=== PATIENT | female | born 1955 | race Caucasian/White ===

== ENCOUNTER 2021-08-19 14:23 | Emergency (ER) | payer MEDICARE, BC ==
[~2021-08-19 14:23] MED LIST: EPINEPHrine 10 ML SYRINGE (0.1 MG/ML) ONE
[2021-08-19 15:10] LABS: HCT 41.7 % (34.0-46.0); Hypochromasia Marked; MCH 40.9 pg (25.0-35.0); MCHC 28.9 g/dL (31.0-37.0); MCV 141.4 fL (80.0-100.0); Macrocytosis Marked; Mean Platelet Volume 9.1; Platelet Count 168 k/uL (150-450); RBC 2.95 m/uL (3.80-5.40); RDW 15.5 % (11.5-15.5)
[2021-08-19] MEDS ORDERED: NOREPINEPHRINE 4 MG in SODIUM CHLORIDE 0.9% 250 ML IV ONE (15:15)
[2021-08-19 15:22] LABS: Toxic Vacuolation Present
[2021-08-19 15:23] LABS: Toxic Granulation Present
[2021-08-19 15:29] LABS: ABG Base Excess -18.2 mmol/L; ABG HCO3 13 mmol/L (21-25); ABG Oxygen Saturation 99.5 % (94-97); ABG PCO2 56 mmHg (35-45); ABG PO2 380 mmHg (83-108); ABG TCO2 15 mmol/L (19-24); Allen Test Performed? Yes
[2021-08-19 15:32] LABS: INR 1.4 (<1.2); Partial Thromboplastin Time 56.6 sec (22.0-30.0); Prothrombin Time 13.9 sec (9.0-12.0)
[2021-08-19 15:36] LABS: ABG PH 6.99 (7.35-7.45)
--- NOTE | 2021-08-19 15:37 | CT ---
EXAMINATION TYPE: CT brain wo con DATE OF EXAM: 08/19/2021 COMPARISON: 01/25/2018 HISTORY: 66-year-old female confusion, altered mental status TECHNIQUE: Examination was done in axial plane without intravenous contrast. Coronal and sagittal r econstructions performed. CT DLP: 1260.1 mGycm Automated exposure control for dose reduction was used. FINDINGS: There is no evidence of acute intracranial hemorrhage, acute ischemic changes, mass, mass-effect, or extra-axial fluid collection. There is no effacement of cerebral sulci or basal subarachnoid cister ns. There is no hydrocephalus. There is no midline shift. Cedeno-white matter distinction is preserv ed. Air-fluid levels within the bilateral sphenoid sinuses, air cells, and trace within the maxillary sin uses. Mastoid air cells well pneumatized. NG tube is visualized. ET tube on the building associate image. Orbits a nd globes are intact. IMPRESSION: No acute intracranial abnormality seen. Air-fluid levels within the paranasal sinuses. Findings may be a consequence of intubation. Correlate to exclude acute sinusitis.
[2021-08-19 15:42] LABS: Total Cells Counted 100
[2021-08-19 15:43] LABS: Anisocytosis (M) Present; Large Platelets Present; Poikilocytosis (M) Present; Polychromasia Present; Reactive Lymphocytes Present
[2021-08-19] MEDS ORDERED: cefTRIAXone IN SWFI 1,000 MG/10 ML SYRINGE IVP STA (15:45)
--- NOTE | 2021-08-19 15:45 | CT ---
EXAMINATION TYPE: CT chest angio for PE DATE OF EXAM: 08/19/2021 COMPARISON: NONE HISTORY: ams, respiratory arrest CT DLP: 410.3 mGycm. Automated Exposure Control for Dose Reduction was Utilized. CONTRAST: CTA scan of the thorax is performed with IV Contrast, patient injected with 100 mL of Isovue 370, pul monary embolism protocol. MIP Images are created on CT scanner and reviewed. FINDINGS: LUNGS: Small to moderate-sized right-sided pneumothorax estimated at 20% greatest in the anterior low er lung. Multifocal groundglass opacities and organizing consolidations bilaterally. Endotracheal tub e terminates just past level of cade off into left lung bronchus, advise pulling back approximately 5 cm to be in better position. MEDIASTINUM: There is satisfactory enhancement of the pulmonary artery and its branches, there is no CT evidence for pulmonary embolism. Satisfactory enhancement of the aorta without aneurysm or dissect ion. There are some prominent subcarinal lymph nodes. No cardiomegaly or pericardial effusion is se en. Orogastric tube terminates before diaphragmatic hiatus in the distal esophagus, advise advancing . Heterogeneous normal-sized thyroid. OTHER: Distended stomach. It is partially imaged. Healing or healed fracture of the posterior right 1 1th rib axial image 126 and 10th rib axial image 112 and right 12th rib axial image 147. No acute dis placed fracture is clearly seen. Osseous structures are demineralized. Mild height loss without linea r lucency consistent with chronic compression fracture involving superior T11 vertebra. Moderate comp ression type fracture with vertebroplasty at T7 level with cement material extending outside vertebra into adjacent disc spaces. IMPRESSION: 1. No CT evidence for acute pulmonary embolism. 2. Small to moderate size right pneumothorax estimated near 20%. Finding greatest in the anterior low er lung. 3. Bilateral multifocal groundglass opacities and organizing consolidations suspicious for covid-19 i nfection in current environment. 4. Low-lying endotracheal tube and 2 left lung bronchus, advise pulling back 5 cm. Orogastric tube fa lls short of stomach and diaphragm, advise advancing. Case discussed with ordering ER physician via telephone at time of dictation.
--- NOTE | 2021-08-19 15:56 | XR ---
EXAMINATION TYPE: XR chest 1V portable DATE OF EXAM: 08/19/2021 COMPARISON: CT chest earlier today HISTORY: Cardiac arrest. Unresponsive. TECHNIQUE: Single frontal supine view of the chest is obtained. FINDINGS: Low-lying endotracheal tube redemonstrated. Orogastric tube terminates distal esophagus le ciarra. Small right basilar pneumothorax redemonstrated. Bilateral multifocal groundglass opacities on a back ground of mild underlying emphysematous change. Cardiac silhouette size is stable and within normal l imits. Osseous structures are demineralized. Healing or healed fracture anterolateral left second and third rib noted. IMPRESSION: Small right basilar pneumothorax redemonstrated. Bilateral multifocal opacities suspiciou s for covid-19 infection. Low lying endotracheal tube redemonstrated. Advise pulling back. Orogastric tube needs to be advanced. All findings discussed with ER physician following recent prior CT.
[2021-08-19 15:57] LABS: Band Neutrophils % 27 %; Metamyelocytes % 3 %; Myelocytes % 1 %; Neutrophils % (M) 50 %; Nucleated Red Blood Cells 5 /100 WBC (0-0)
[2021-08-19 16:02] LABS: Lymphocytes # (M) 1.66 k/uL (1.0-4.8); Metamyelocytes # (M) 0.41 k/uL (0); Monocytes # (M) 0.97 k/uL (0-1.0); Myelocytes # (M) 0.14 k/uL (0); WBC 13.8 k/uL (3.8-10.6)
--- NOTE | 2021-08-19 16:08 | ED ---
General Adult HPI - General Chief complaint: Cardiac Arrest/CPR Stated complaint: cardiac arrest Time Seen by Provider: 08/19/21 14:23 Source: patient, EMS, RN notes reviewed, old records reviewed Mode of arrival: EMS - History of Present Illness Initial comments: This is a 66-year-old female who presents emergency Department by EMS. According to EMS they got a call that the patient was found down for approximately 15-20 minutes per the family. Family states that last the saw her was about 20 minutes prior to making the call. When EMS arrived she was asystole they were followed ACLS protocol for 20 minutes before they got a pulse back per EMS pulse remained for about 2-3 minutes and then she was again pulseless and they continued ACLS protocol. Patient was given 5 epis prior to arrival with a placed and airway. - Related Data Allergies Allergy/AdvReac Type Severity Reaction Status Date / Time No Known Allergies Allergy Verified 08/19/21 14:35 Review of Systems ROS Statement: Those systems with pertinent positive or pertinent negative responses have been documented in the HPI. ROS Other: All systems not noted in ROS Statement are negative. General Exam - General Exam Comments Initial Comments: GENERAL: Patient is pale and unresponsive. EYES: The sclera were anicteric and conjunctiva were pink and moist. Pupils are fixed and dilated. PULMONARY: No spontaneous breath or being taken by the patient. Patient is however being bagged.. CARDIOVASCULAR: No heart sounds can be heard ABDOMEN: No gross abnormalities are noted SKIN: Skin is pale. NEUROLOGIC: Is unresponsive MUSCULOSKELETAL: Patient is making no movements. PSYCHIATRIC: Unable to assess Course Vital Signs 08/19/21 08/19/21 08/19/21 14:58 15:00 15:18 Pulse Rate 112 H 116 H 109 H Respiratory 20 21 16 Rate Blood Pressure 75/50 179/106 108/59 O2 Sat by Pulse 93 L 100 100 Oximetry 08/19/21 08/19/21 08/19/21 15:22 15:26 15:32 Pulse Rate 105 H 105 H 110 H Respiratory 16 16 18 Rate Blood Pressure 106/70 105/62 109/61 O2 Sat by Pulse 100 100 100 Oximetry 08/19/21 08/19/21 08/19/21 15:36 15:42 15:48 Pulse Rate 102 H 112 H 112 H Respiratory 16 16 16 Rate Blood Pressure 110/70 105/76 103/60 O2 Sat by Pulse 100 100 100 Oximetry 08/19/21 08/19/21 08/19/21 15:56 16:02 16:08 Pulse Rate 109 H 108 H 112 H Respiratory 16 16 16 Rate Blood Pressure 96/63 96/41 90/60 O2 Sat by Pulse 100 99 99 Oximetry 08/19/21 08/19/21 08/19/21 16:12 16:16 16:22 Pulse Rate 112 H 112 H 113 H Respiratory 16 16 16 Rate Blood Pressure 82/39 83/67 107/56 O2 Sat by Pulse 98 98 98 Oximetry Procedures - Intubation Paralytic: other (No medications were necessary) Laryngoscope: Best Size: 3 ET Tube Size: 7.5 Tube Secured Location: teeth Tube Placement Confirmation: visualized tube passing through cords, equal breath sounds bilaterally, no breath sounds over epigastrium, confirmation by capnometry Patient Tolerated Procedure: well Intubation Complications: none Medical Decision Making - Medical Decision Making CT of the brain shows no acute pathology. CT of the chest showed possibly COVID pneumonia and pneumothorax on the right. Shortly after arrival we did get a pulse back after an epinephrine was administered we lost the pulse multiple times and pulse returned multiple times. Patient was then placed on Levophed. Patient's CAT scan came back and showed probable COVID infection as well as a pneumothorax on the right. I spoke with the a couple of times prior and this time I let him know that a chest tube and central line would need to be placed here he stated that the patient was to be DO NOT RESUSCITATE from this point forward and did not want a chest tube to be placed or central line. He was content putting whether or not he wan rigo the pressor stopped but first he wanted to see the patient. after seeing the patient told me he did not want any more pressors and in fact she wanted her off the ventilator. EKG shows sinus rhythm at 90 bpm RI interval is 160 QRS is 1:30 for QT interval 362 QTC is 464. Patient's right bundle branch block. Once patient was removed from the ventilator and stop pressors. The patient was eventually pronounced at 1654 - Lab Data Result diagrams: 08/19/21 14:40 08/19/21 15:33 Lab Results 08/19/21 08/19/21 08/19/21 Range/Units 14:40 14:40 14:40 WBC 13.8 H (3.8-10.6) k/uL RBC 2.95 L (3.80-5.40) m/uL Hgb 12.0 (11.4-16.0) gm/dL Hct 41.7 (34.0-46.0) % MCV 141.4 H (80.0-100.0) fL MCH 40.9 H (25.0-35.0) pg MCHC 28.9 L (31.0-37.0) g/dL RDW 15.5 (11.5-15.5) % Plt Count 168 (150-450) k/uL MPV 9.1 Neutrophils % (Manual) 50 % Band Neuts % (Manual) 27 % Lymphocytes % (Manual) 12 % Monocytes % (Manual) 7 % Metamyelocytes % 3 % Myelocytes % 1 % Neutrophils # (Manual) 10.60 H (1.3-7.7) k/uL Lymphocytes # (Manual) 1.66 (1.0-4.8) k/uL Monocytes # (Manual) 0.97 (0-1.0) k/uL Metamyelocytes # (Man) 0.41 H (0) k/uL Myelocytes # (Manual) 0.14 H (0) k/uL Nucleated RBCs 5 H (0-0) /100 WBC Manual Slide Review Performed Reactive Lymphocytes Present Toxic Granulation Present Toxic Vacuolation Present Large Platelets Present Polychromasia Present Hypochromasia Marked Poikilocytosis (manual Present Anisocytosis (manual) Present Macrocytosis Marked A PT 13.9 H (9.0-12.0) sec INR 1.4 H (<1.2) APTT 56.6 H (22.0-30.0) sec Sample Site ABG pH (7.35-7.45) ABG pCO2 (35-45) mmHg ABG pO2 (83-108) mmHg ABG HCO3 (21-25) mmol/L ABG Total CO2 (19-24) mmol/L ABG O2 Saturation (94-97) % ABG Base Excess mmol/L Varun Test FiO2 % Sodium (137-145) mmol/L Potassium (3.5-5.1) mmol/L Chloride (98-107) mmol/L Carbon Dioxide (22-30) mmol/L Anion Gap mmol/L BUN (7-17) mg/dL Creatinine (0.52-1.04) mg/dL Est GFR (CKD-EPI)AfAm (>60 ml/min/1.73 sqM) Est GFR (CKD-EPI)NonAf (>60 ml/min/1.73 sqM) Glucose (74-99) mg/dL Calcium (8.4-10.2) mg/dL Total Bilirubin (0.2-1.3) mg/dL AST (14-36) U/L ALT (4-34) U/L Alkaline Phosphatase (38-126) U/L Troponin I 0.429 H* (0.000-0.034) ng/mL Total Protein (6.3-8.2) g/dL Albumin (3.5-5.0) g/dL Coronavirus (PCR) (Not Detectd) 08/19/21 08/19/21 08/19/21 Range/Units 15:26 15:33 15:38 WBC (3.8-10.6) k/uL RBC (3.80-5.40) m/uL Hgb (11.4-16.0) gm/dL Hct (34.0-46.0) % MCV (80.0-100.0) fL MCH (25.0-35.0) pg MCHC (31.0-37.0) g/dL RDW (11.5-15.5) % Plt Count (150-450) k/uL MPV Neutrophils % (Manual) % Band Neuts % (Manual) % Lymphocytes % (Manual) % Monocytes % (Manual) % Metamyelocytes % % Myelocytes % % Neutrophils # (Manual) (1.3-7.7) k/uL Lymphocytes # (Manual) (1.0-4.8) k/uL Monocytes # (Manual) (0-1.0) k/uL Metamyelocytes # (Man) (0) k/uL Myelocytes # (Manual) (0) k/uL Nucleated RBCs (0-0) /100 WBC Manual Slide Review Reactive Lymphocytes Toxic Granulation Toxic Vacuolation Large Platelets Polychromasia Hypochromasia Poikilocytosis (manual Anisocytosis (manual) Macrocytosis PT (9.0-12.0) sec INR (<1.2) APTT (22.0-30.0) sec Sample Site Right Radial ABG pH 6.99 L* (7.35-7.45) ABG pCO2 56 H (35-45) mmHg ABG pO2 380 H (83-108) mmHg ABG HCO3 13 L (21-25) mmol/L ABG Total CO2 15 L (19-24) mmol/L ABG O2 Saturation 99.5 H (94-97) % ABG Base Excess -18.2 mmol/L Varun Test Yes FiO2 100 % Sodium 118 L* (137-145) mmol/L Potassium 4.5 (3.5-5.1) mmol/L Chloride 89 L (98-107) mmol/L Carbon Dioxide 12 L (22-30) mmol/L Anion Gap 17 mmol/L BUN 10 (7-17) mg/dL Creatinine 0.86 (0.52-1.04) mg/dL Est GFR (CKD-EPI)AfAm 83 (>60 ml/min/1.73 sqM) Est GFR (CKD-EPI)NonAf 72 (>60 ml/min/1.73 sqM) Glucose 46 L* (74-99) mg/dL Calcium 6.3 L* (8.4-10.2) mg/dL Total Bilirubin 1.7 H (0.2-1.3) mg/dL AST 1636 H (14-36) U/L ALT 316 H (4-34) U/L Alkaline Phosphatase 95 (38-126) U/L Troponin I (0.000-0.034) ng/mL Total Protein 3.8 L (6.3-8.2) g/dL Albumin 1.6 L (3.5-5.0) g/dL Coronavirus (PCR) Not Detected (Not Detectd) Critical Care Time Critical Care Time: Yes Total Critical Care Time: 45 Disposition Clinical Impression: Cardiopulmonary arrest, Pneumothorax Disposition: Referrals: Scooby Arriola MD [Primary Care Provider] - 1-2 days Time of Disposition: 16:15 Preliminary Cause of : Cardiopulmonary arrest - Out of Hospital Transfer - Req. Specs Out of Hospital Transfer - Requested Specifics: Other Emergency Center
[2021-08-19 16:33] LABS: Albumin 1.6 g/dL (3.5-5.0); Total Bilirubin 1.7 mg/dL (0.2-1.3); Total Protein 3.8 g/dL (6.3-8.2)
[2021-08-19 16:34] VITALS: BP 107/56; PULSE 113; RESP 16
[2021-08-19 17:02] LABS: Calcium 6.3 mg/dL (8.4-10.2); Potassium 4.5 mmol/L (3.5-5.1)
== END 2021-08-19 18:08 | disposition expired ==
LOC: EC 14:23
DX: I46.9 Cardiac arrest, cause unspecified (principal); J93.9 Pneumothorax, unspecified; Z20.822 Contact with and (suspected) exposure to COVID-19
CPT/HCPCS: 99291; 31500; 96365; 36415; 94002; 80053; 82805; 84484; 85025; 85610; 85730; 87635; 71045; 70450; 71275; Q9967; 93005